=== PATIENT | male | born 1940 | race Caucasian/White ===

== ENCOUNTER 2017-05-10 05:25 | Day surgery (SDC) | payer MEDICARE ==
[~2017-05-10] VITALS: Ht 177.8 cm; Wt 75.8 kg
--- NOTE | ~2017-05-10 | S ---
[facility] [place] [address] SURGICAL PATH RPT PROCEDURE Name: GAIL PUENTEETT W [facility] [id number] Admission: 05/10/17 Date of : 42 Discharge: 05/10/17 Report #: [id number] Path Case #: [id number] PATHOLOGY REPORT COLLECTION DATE: 05/10/2017 RECEIVED DATE: 05/10/2017 SUBMITTING PHYS: Dr. Kartik Pederson OTHER PHYS: Dr. Niraj Ramirez ADDENDUM REPORT (Order Date: 05/16/2017 00:00) ADDENDUM COMMENT: Please see next page for scanned image of report submitted by [facility] managing consultant clinical professor pathologist, Lorelei Lincoln M.D. (MAP:amj; d/t: 05/17/2017) ELECTRONICALLY SIGNED BY: Gino Anderson M.D. DATE/TIME:05/17/2017 14:02 SPECIMEN(S) RECEIVED: A.Right conjunctival lesion * * * * * * * * * * * * FINAL DIAGNOSIS: A. Right conjunctival lesion: - PLEASE SEE ADDENDUM FOR OUTSIDE CONSULTATION DIAGNOSIS. PATHOLOGIST: Gino Anderson M.D. REPORT ELECTRONICALLY SIGNED BY: Gino Anderson M.D. DATE/TIME: 05/17/2017 13:59 * * * * * * * * * * * * GROSS PATHOLOGY: A. Received in formalin labeled "Antionette Giles, right conjunctival lesion" and consists of a 0.3 x 0.2 x 0.2 cm glistening pink tissue fragment that is totally submitted as A1. (HERBERT; 05/10/2017) CLINICAL HISTORY: Right conjunctival lesion INITIAL CPT CODE(S): A; [address] [facility] [address] [place] [address] SURGICAL PATH RPT PROCEDURE Name: GILES PUENTE Room #: DEP [facility]..#: [id number] Admission: 05/10/17 Date of : 42 Discharge: 05/10/17 Report #: [id number] Path Case #: [id number] Professional services performed by [facility] at [address], [place] [address] Technical services performed by [facility] at [address] [place] [address], [facility] [address] [address]. [facility] [address] [place] [address] PHONE: [phone] DIRECTOR: Troy Lowery M.D. * * * END OF REPORT * * *
--- NOTE | ~2017-05-10 | O ---
[facility] [place] [address] OPERATIVE REPORT Name: YVROSE PUENTE Room #: DEP [facility].#: [id number] Admission: 05/10/17 Attend Phys: Kartik Pederson MD Discharge: 05/10/17 Date of : 42 Report #: [id number] THIS REPORT FOR: //name// CC: LIUDMILA Pederson DATE OF SERVICE: 05/10/2017 PREOPERATIVE DIAGNOSIS: Pigmented conjunctival lesion of right eye. PREOPERATIVE DIAGNOSIS: Pigmented conjunctival lesion of right eye. PROCEDURE: Excision of lesion of right eye with conjunctivoplasty, repair of defect. SURGEON: Kartik Pederson MD. WELLFIELD TECHNICIAN: None. ANESTHESIA: MAC. COMPLICATIONS: None. INDICATIONS FOR SURGERY: This pleasant 77-year-old gentleman has an acquired pigmented lesion in the medial right conjunctiva of the right eye. He presents today for excision of this lesion with permanent histopathologic analysis of the tissue removed and repair of that defect. Informed consent was obtained to include but not limited to the potential risk for loss of vision, bleeding, infection, failure to improve the problem and the almost certain need for further treatment should the lesion turned out to be frankly neoplastic. DESCRIPTION OF PROCEDURE: The patient was taken to the operating room where 2% Xylocaine with epinephrine mixed with equal parts of 0.75% Marcaine with Wydase was administered transcutaneously to the right conjunctiva and medial canthus. The patient was subsequently prepped and draped in the usual sterile fashion. The lesion was then elevated as an incision was then made with a Josselin scissor around its base 360 degrees, with attention to taking care to remove at least 2-3 mm of normal tissue around the entire lesion. Relatively brisk hemostasis followed the excision. Hemostasis was achieved with pinpoint battery powered cautery. The specimen was then passed off the field in formalin. The conjunctivoplasty was then outlined. The relaxing incisions made and the subcutaneous structures elevated. Hemostasis was re-achieved once more. The conjunctiva was then advanced and secured with interrupted 6-[address] [address] OPERATIVE REPORT Name: YVROSE PUENTE Room #: [facility]..#: [id number] Admission: 05/10/17 Attend Phys: Kartik Pederson MD Discharge: 05/10/17 Date of : 42 Report #: [id number] sutures. Erythromycin ophthalmic ointment was then placed on the eye, and the patient subsequently transported to the recovery area having tolerated the procedure well with no anesthetic or operative complications being noted. <ELECTRONICALLY SIGNED> By: Kartik Pederson MD 05/14/17 0621 [id number] Kartik Pederson MD /nt
[~2017-05-10 05:25] MED LIST: FLUOXETINE HCL40 MG PO; LISINOPRIL10 MG PO; PRESERVISION T1 EACH PO; RISPERDAL 1 MG T1 MG PO
[2017-05-10 09:15] VITALS: BP 143/75
== END 2017-05-10 10:30 | disposition home or self-care (01) ==
LOC: OR 05:25 → TBA 05:26 → OR 10:30
DX: H11.131 Conjunctival pigmentations, right eye (principal); I10 Essential (primary) hypertension; Z86.59 Personal history of other mental and behavioral disorders; Z90.49 Acquired absence of other specified parts of digestive tract; Z85.46 Personal history of malignant neoplasm of prostate; Z98.890 Other specified postprocedural states; Z85.828 Personal history of other malignant neoplasm of skin; Z79.899 Other long term (current) drug therapy
CPT/HCPCS: 50010; 50101; 50386; 50398; 56528; 62110; 62850; 70005

== ENCOUNTER 2019-07-10 06:41 | Day surgery (SDC) | payer MEDICARE ==
[~2019-07-10] VITALS: Ht 177.8 cm; Wt 70.8 kg
[~2019-07-10 06:41] MED LIST changes: +VITAMIN B-121000 MC2 PO; +ZOLPIDEM TARTRA10 MG PO
[2019-07-10 07:49] VITALS: BP 138/78
--- NOTE | 2019-07-14 06:18 | P ---
[facility] [place] [address] PROCEDURE REPORT Name: CINDIYVROSE Tammi Room #: DEP [facility].#: [id number] Admission: 07/10/19 Attend Phys: Kartik Pederson MD Discharge: 07/10/19 Date of : 42 Report #: [id number] THIS REPORT FOR: //name// CC: David Pederson DATE OF SERVICE: 07/10/2019 PREOPERATIVE DIAGNOSIS: Left lower lid ectropion. POSTOPERATIVE DIAGNOSIS: Left lower lid ectropion. PROCEDURE: Left lower lid ectropion repair. SURGEON: Kartik Pederson MD. DENTAL BILLING SPECIALIST: None. 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 He presents today for a left lower lid ectropion repair in order to improve his ocular surface milieu. Informed consent was obtained to include but not limited to the potential risk for loss of vision, bleeding, infection, failure to improve the problem, and the potential need for further surgery or treatment. DESCRIPTION OF PROCEDURE: The patient was taken to the operating room where 2% Xylocaine with epinephrine mixed with equal parts 0.75% Marcaine with Wydase was administered transconjunctivally and transcutaneously to the left lower lid, lateral canthus, medial canthus, and cheek. The patient was subsequently prepped and draped in the usual sterile fashion. An incision was then made with a Posey needle across the inferior border of the tarsal plate across the width of the lid. The dissection was carried down into the lower lid and cheek tissues where the lower lid retractors were identified. Hemostasis was then re-achieved. The retractors were then advanced superiorly and attached to the inferior border of the tarsal plate in a mattress fashion inverting the lid margin. Multiple such sutures were placed in the lid rolled back and nicely. The wounds were then cleaned and dressed with erythromycin ointment. The [address] [address] PROCEDURE REPORT Name: YVROSE PUENTE Room #: DEP [facility]..#: [id number] Admission: 07/10/19 Attend Phys: Kartik Pederson MD Discharge: 07/10/19 Date of : 42 Report #: [id number] patient subsequently transported to the recovery area having tolerated the procedures well with no anesthetic or operative complications being noted. <ELECTRONICALLY SIGNED> By: Kartik Pederson MD 07/14/19 0618 [id number] Kartik Pederson MD /nt
== END 2019-07-10 09:20 | disposition home or self-care (01) ==
LOC: OR 06:41 → TBA 06:50 → OR 09:20
DX: H02.105 Unspecified ectropion of left lower eyelid (principal); H04.89 Other disorders of lacrimal system; F32.9 Major depressive disorder, single episode, unspecified; F41.9 Anxiety disorder, unspecified; Z85.828 Personal history of other malignant neoplasm of skin; Z98.890 Other specified postprocedural states; Z79.899 Other long term (current) drug therapy; Z85.46 Personal history of malignant neoplasm of prostate; Z90.49 Acquired absence of other specified parts of digestive tract
CPT/HCPCS: 50010; 50101; 50386; 50398; 51636; 56531; 62110; 62850; 70005